=== PATIENT | male | born 1985 | race Caucasian/White ===

== ENCOUNTER 2024-08-10 21:12 | Emergency (ER) | payer OTHER ==
[~2024-08-10] VITALS: Ht 172.7 cm; Wt 102.0 kg
[2024-08-10 21:28] VITALS: O2SAT 97
[2024-08-10] MEDS ORDERED: IBUPROFEN 600MG TABLET PO STA (22:40)
[2024-08-10 22:52] LABS: CLARITY URINE CLOUDY (CLEAR); COLOR URINE DARK YELLOW (YELLOW); GLUCOSE URINE NEGATIVE (NEGATIVE); KETONES URINE NEGATIVE (NEGATIVE); LEUKOCYTE ESTERASE URINE NEGATIVE (NEGATIVE); NITRITE URINE NEGATIVE (NEGATIVE); OCCULT BLOOD URINE 3+ (NEGATIVE); PROTEIN URINE 2+ (NEGATIVE); SPECIFIC GRAVITY URINE 1.027 (1.005-1.030)
[2024-08-10 22:55] LABS: BASOPHILS % 0.4 % (0.0-2.0); HEMATOCRIT. 42.5 % (42.0-52.0); HEMOGLOBIN. 14.1 g/dL (14.0-18.0); LYMPHOCYTES % 11.1 % (20.0-50.0); MEAN CORPUSCULAR HEMOGLOBIN 27.6 pg (28.0-32.0); MEAN CORPUSCULAR HGB CONC 33.1 g/dL (31.0-37.0); MEAN CORPUSCULAR VOLUME 83.5 fL (80.0-94.0); MEAN PLATELET VOLUME 6.6 fl (7.4-10.4); MONOCYTES % 4.8 % (2.0-8.0); NEUTROPHILS % 81.7 % (40.0-76.0); PLATELET 334 x1000/uL (130-400); RED BLOOD CELL COUNT 5.09 mill/uL (4.7-6.1); RED CELL DISTRIBUTION WIDTH 14.2 % (11.6-14.6); WHITE BLOOD COUNT 15.3 x1000/uL (4.5-11.0)
[2024-08-10 23:01] LABS: CHLORIDE 104 mEq/L (98-107); POTASSIUM 4.3 mEq/L (3.5-5.1); SODIUM 140 mEq/L (136-145)
[2024-08-10 23:02] LABS: CARBON DIOXIDE 28 mEq/L (21-32)
[2024-08-10 23:03] LABS: CALCIUM 10.1 mg/dL (8.7-10.4)
[2024-08-10 23:07] LABS: CREATININE 0.9 mg/dL (0.6-1.3); GLUCOSE 135 mg/dL (70-105); UREA NITROGEN BLOOD 12 mg/dL (9-23)
[2024-08-10 23:09] LABS: ALANINE AMINOTRANSFERASE 49 IU/L (10-49); ALBUMIN 5.1 g/dL (3.2-4.8); ASPARTATE AMINOTRANSFERASE 34 IU/L (<34)
[2024-08-10 23:10] LABS: BILIRUBIN TOTAL 0.6 mg/dL (0.1-1.0)
[2024-08-10 23:35] LABS: BACTERIA URINE TRACE; RBC URINE TNTC /hpf (0-2); SQUAMOUS EPITHELIAL CELL URINE FEW /lpf (RARE/1+); WBC URINE NONE SEEN /hpf (0-2)
[2024-08-11] MEDS ORDERED: HYDR-4001 MT (01:25)
[2024-08-11] MEDS ORDERED: TAMS-11 MT (01:25)
[2024-08-11] MEDS ORDERED: IBUP-2029 MT (01:25)
[2024-08-11] MEDS: TAMSULOSIN HCL 0.4MG SR CAPSULE PO ONE (02:18)
[2024-08-11] MEDS: KETOROLAC 30MG/ML VIAL IM ONE (02:19)
[2024-08-11 02:24] VITALS: BP 141/95; PULSE 81; RESP 20; TEMP 36.83628; O2SAT 100
== END 2024-08-11 02:24 | disposition home or self-care (01) ==
LOC: ER 21:12
DX: N20.1 Calculus of ureter (principal)
CPT/HCPCS: 99285; 74176; 80053; 81003; 85025; 36415; 96372; J1885